=== PATIENT | female | born 1990 | race Caucasian/White ===

== ENCOUNTER 2016-08-14 10:21 | Outpatient (CLI) | payer MEDICAID | END 2016-08-14 10:22 | disposition home or self-care (01) | DX: Z36 Encounter for antenatal screening of mother (principal) ==

== ENCOUNTER 2016-10-07 10:42 | Outpatient (CLI) | payer MEDICAID | END 2016-10-07 10:43 | DX: Z11.3 Encounter for screening for infections with a predominantly sexual mode of transmission (principal) ==

== ENCOUNTER 2016-11-15 12:00 | Outpatient (CLI) | payer MEDICAID | END 2016-11-15 12:01 | disposition home or self-care (01) | DX: Z36 Encounter for antenatal screening of mother (principal) ==

== ENCOUNTER 2016-12-25 10:04 | Outpatient (CLI) | payer MEDICAID ==
[2016-12-25 11:32] LABS: HCT - HEMATOCRIT 28.6 % (37.0-47.0); HGB - HEMOGLOBIN 9.6 g/dL (12.0-16.0); MEAN CORPUSCULAR HEMOGLOBIN 31.8 pg (27.0-31.0); MEAN CORPUSCULAR HGB CONC 33.6 g/dL (32.0-36.0); MEAN CORPUSCULAR VOLUME 94.5 fL (81.0-99.0); MEAN PLATELET VOLUME 7.1 fL (7.9-10.8); RED BLOOD COUNT 3.02 10^6/uL (4.20-5.40)
== END 2016-12-25 10:05 | disposition home or self-care (01) ==
LOC: LAB 10:04
PROVIDERS: ATTEND Nurse Practitioner Obstetrics & Gynecology
DX: Z36 Encounter for antenatal screening of mother (principal)
CPT/HCPCS: 36415; 82950; 86850

== ENCOUNTER 2017-02-28 11:13 | Outpatient (CLI) | payer MEDICAID | END 2017-02-28 11:14 | disposition home or self-care (01) | LOC: LAB.R 11:13 | PROVIDERS: ATTEND Registered Nurse | DX: Z36 Encounter for antenatal screening of mother (principal) | CPT/HCPCS: 87081 ==

== ENCOUNTER 2017-03-11 10:34 | Outpatient (CLI) | payer MEDICAID ==
[2017-03-11 11:35] LABS: IRON 44 ug/dL (28-170); TOTAL IRON BINDING CAPACITY 588 ug/dL (250-450); TRANSFERRIN 420 mg/dL (192-382)
== END 2017-03-11 10:35 | disposition home or self-care (01) ==
LOC: LAB 10:34
PROVIDERS: ATTEND Registered Nurse
DX: O99.013 Anemia complicating pregnancy, third trimester (principal)
CPT/HCPCS: 36415; 82728; 83540; 84466; 85018

== ENCOUNTER 2017-03-25 20:14 | Inpatient (IN) | payer MEDICAID ==
[2017-03-25] MEDS ORDERED: SODIUM CHLORIDE FLUSH 0.9% 10 ML SYRINGE IVP ONE ×2 (20:56→21:02)
[2017-03-25] MEDS ORDERED: OXYTOCIN/SODIUM CHLORIDE 250 ML IV ONE (21:01)
[2017-03-25] MEDS ORDERED: SODIUM CHLORIDE FLUSH 0.9% 10 ML SYRINGE IVP PRN (21:01)
[2017-03-25] MEDS ORDERED: ONDANSETRON 4 MG/2 ML VIAL IVP PRN (21:01)
[2017-03-25] MEDS ORDERED: LACTATED RINGERS 1,000 ML IV ONE (21:02)
[2017-03-25] MEDS ORDERED: fentaNYL 2,500 MCG/50 ML VIAL IV PRN (21:04)
--- NOTE | 2017-03-25 21:09 | HISTORY & PHYSICAL EXAMINATION ---
Admit History - Instructions Chilkat/Slash: -Left hand click circles element as positive or present. -Right hand click slashes element as negative or not present. - Visit Reason Visit Reason: Membranes rupture - : 3 Parity: 2 Premature: 0 Ectopic: 0 : 0 Care: positive: [facility] Risk/History: positive: None Complications This : positive: None, Other (mild anemia, iron -deficiency) Smoking Status: Former smoker - Mother's Labs Mother's Blood Type: positive: A Mother's RH: positive: Positive GBS: positive: Group B Step Negative Rubella Status: positive: Immune Meds/Allgy - Home Medications Home Medications: Ambulatory Orders Medication Instructions Recorded Confirmed Ferrous Sulfate 325 mg ORAL BID 03/25/17 03/25/17 Pnv No.121/Iron/Folic Acid 1 each ORAL DAILY 03/25/17 03/25/17 [ Multivitamin Tablet] - Allergies Allergies/Adverse Reactions: Allergies Allergy/AdvReac Type Severity Reaction Status Date / Time aspirin Allergy Hives Verified 03/25/17 21:00 Physical - Abdominal Exam Vital Signs: Temp Pulse Resp BP Pulse Ox 36.8 C 80 16 122/68 100 03/25/17 20:23 03/25/17 20:23 03/25/17 20:23 03/25/17 20:23 03/25/17 20:23 Contraction Frequency (min/apart): irregular Contraction Intensity: positive: Mild Uterine Resting Tone: positive: Soft - Monitoring Heart Rate Baseline: 130 Strip Review: positive: Category I (130bpm BL, +accels, no decels, moderate variability) - Presentation Presentation: positive: Vertex - Vaginal Exam Membranes: positive: Membranes ruptured (+ nitrazine, + fern, CAF observed) Dilation (in cm): 4 Effacement (%): 90 Station: positive: -1 Cervical Position: positive: Anterior - Speculum Exam Speculum Exam Performed: positive: No Findings: positive: Fern, Nitrazine - Other Notes Labor Progress Note/Additional Text: S: Niecy is a 26 y/o @ 39w1d by 1st trimester US who presents w/ complaint of leakage of fluid beginning at 1930. She noticed leakage after using restroom & applied a pad, which became wet shortly after application. She has had ongoing leakage of fluid. She denies painful uterine contractions. She denies vaginal bleeding. She reports good FM. She is accompanied by her partner, Long, who is involved & supportive. She is hoping for epidural anesthesia for her discomfort in labor. Niecy's has been complicated by iron-deficiency anemia that has persisted @ hgb 9.9 despite iron supplementation. She has otherwise had an uncomplicated . She screened negative for GBS @ 36 weeks' gestation. Niecy is taking vitamins & iron orally, and she occasionally using Tums for heartburn. Niecy's medical & obstetric history are unremarkable, and she has never had surgery. O: AAOx3, NAD WA gravid female. Affect appropriate, mood excited. Eager to meet her baby VSS, as noted EFM cat I, reactive NST Minimal uterine activity Cephalic presentation, palpable movement, EFW 6-6.5# Leakage of clear amniotic fluid noted +fern, +nitrazine Lungs: b/l CTA t/o Heart: RRR nls1s2, no murmur Abd: gravid, NT Skin:clean, dry, intact w/o lesion, multiple piercings, multiple tattoos HEENT: Poor dentition w/ carious teeth Extremities: FROM x4, no edema Neuro: no gross deficit Psych: pleasant, cooperative A: 26 y/o @ 39w1d by early US w/ SROM for CAF x1.75 hours GBS negative Not in labor Adequate pain control w/o analgesia/anesthesia FHTs cat I P: 1. Reviewed all options for management & risks/benefits of options 2. Pt elects Pitocin IOL for SROM, PARQ held 3. Admit to inpatient FBP 4. CBC, BB hold, IV insertion 5. Reviewed anemia & desire to minimize pp EBL; will actively manage 3rd stage of labor 6. Begin Pitocin infusion & titrate per protocol to adequate labor pattern by tocometry 7. Analgesia/anesthesia PRN per pt request 8. Assess cervical status w/ change in clinical status; minimize cervical exams secondary to SROM 9. Anticipate 10. Reviewed plan of care w/ pt, partner, RN @ bedside & back-up Dr. Misty ORTIZ; all in agreement, without concerns.
[2017-03-25 21:11] LABS: BASOPHILS % (AUTO) 0.6 %; EOSINOPHILS % (AUTO) 1.1 %; HCT - HEMATOCRIT 29.6 % (37.0-47.0); HGB - HEMOGLOBIN 9.8 g/dL (12.0-16.0); LYMPHOCYTES % (AUTO) 16.4 %; MEAN CORPUSCULAR HEMOGLOBIN 30.8 pg (27.0-31.0); MEAN CORPUSCULAR HGB CONC 33.1 g/dL (32.0-36.0); MEAN CORPUSCULAR VOLUME 93.2 fL (81.0-99.0); MEAN PLATELET VOLUME 7.9 fL (7.9-10.8); MONOCYTES % (AUTO) 7.3 %; NEUTROPHILS % (AUTO) 74.6 %; RED BLOOD COUNT 3.17 10^6/uL (4.20-5.40); RED CELL DISTRIBUTION WIDTH 13.4 % (12.0-15.0)
[2017-03-25] MEDS ORDERED: CALCIUM CARBONATE CHEW 500 MG TABLET ONE (21:22)
[2017-03-25] MEDS: CALCIUM CARBONATE CHEW 500 MG TABLET PO SCH (21:23)
[2017-03-25] MEDS: LACTATED RINGERS 1,000 ML IV SCH (21:25)
[2017-03-25 21:31] LABS: BAND NEUTROPHILS % (MANUAL) 5 %; LYMPHOCYTES % (MANUAL) 19 %; NEUTROPHILS % (MANUAL) 71 %; NP AUTO DIFFERENTIAL? YES; NP MAN DIFFERENTIAL? NO; PLATELET ESTIMATE, MANUAL NORMAL (130-450,000) (NORMAL); PLATELET MORPHOLOGY NORMAL APPEARANCE (NORMAL); TOTAL CELLS COUNTED 100
[2017-03-25] MEDS ORDERED: OXYTOCIN/SODIUM CHLORIDE 250 ML IV SCH (22:00)
[2017-03-25] MEDS ORDERED: SODIUM CHLORIDE FLUSH 0.9% 10 ML SYRINGE IVP SCH (22:00)
[2017-03-25] MEDS ORDERED: TERBUTALINE 1 MG/ML VIAL SUBQ SCH (22:00)
[2017-03-26] MEDS ORDERED: fent/BUPIV 2 MCG/0.125% 250 ML EP ONE (01:12)
[2017-03-26] MEDS ORDERED: MINERAL OIL LIGHT 10 ML MC ONE (01:13)
[2017-03-26] MEDS ORDERED: fentaNYL 100 MCG/2 ML VIAL ONE ×2 (01:14→10:23)
--- NOTE | 2017-03-26 01:16 | PROVIDER PROGRESS NOTE ---
Labor Progress Note - Uterine Monitoring Uterine Monitoring Mode: positive: External toco Contraction Frequency (min/apart): 2-3 Contraction Intensity: positive: Moderate Uterine Resting Tone: positive: Soft - Monitoring Monitor Mode: positive: External ultrasound Heart Rate Baseline: 120 Heart Rate Variability: positive: Moderate (6-25 bmp) Accelerations: positive: Present, 15x15 Decelerations: positive: None Strip Review: positive: Category I - Labor Progress Note Labor Progress Note/Additional Text: S: Niecy is resting quietly in bed; she has been up to the restroom several times, and she has been changing positions. She is not interested in being out of the bed or using the ball or rocking chair. She reports increased intensity of uterine contractions & more profound anterior cramping w/ some intermittent sensation of increased pressure. She continues to leak CAF. She does not desire analgesia or anesthesia @ this time. Her partner is present @ the bedside & is involved & supportive. O: VS: T: 98.6, HR 62 RR 18 BP 113/60 EFM: BL 120, +accels, no decels, mod variability TOCO: UCs q2-3 minutes x60-90 seconds, palpably moderate on 2mU/min of Pitocin SVE: Deferred secondary to ROM A: 26 y/o @ 39w2d s/p SROM for CAF @ 1930, for a total ruptured duration of 5.75 hours, afebrile FHTs cat I Increased uterine activity w/ Pitocin infusion Adequate pain control w/o analgesia/anesthesia GBS negative P: 1. Encouraged light po intake 2. Encouraged maternal rest 3. Reviewed optimal maternal positioning to facilitate descent 4. Continue to titrate Pitocin infusion to maintain adequate contraction pattern per tocometry 5. Analgesia/anesthesia PRN per pt request 6. Assess cervical status w/ clinical indication or x4 hours if no change in clinical status 7. Reviewed plan of care w/ pt, partner, RN @ bedside & back-up Dr. Misty ORTIZ; all in agreement, without concerns 8. Anticipate
[2017-03-26] MEDS: LACTATED RINGERS 1,000 ML IV SCH ×3 (01:20→09:48)
[2017-03-26] MEDS: CALCIUM CARBONATE CHEW 500 MG TABLET PO SCH ×2 (02:18→21:29)
[2017-03-26] MEDS ORDERED: METOCLOPRAMIDE 10 MG/2 ML VIAL IVP PRN (02:21)
[2017-03-26] MEDS ORDERED: LACTATED RINGERS 500 ML IV ONE (02:21)
[2017-03-26] MEDS ORDERED: ePHEDrine 50 MG/ML VIAL IVP PRN (02:21)
[2017-03-26] MEDS ORDERED: ONDANSETRON 4 MG/2 ML VIAL IVP PRN (02:21)
[2017-03-26] MEDS ORDERED: diphenhydrAMINE INJ 50 MG/ML VIAL IVP PRN (02:21)
[2017-03-26] MEDS ORDERED: NALOXONE 0.4 MG/ML VIAL IVP PRN (02:21)
[2017-03-26] MEDS ORDERED: NALBUPHINE 20 MG/ML AMP IVP PRN (02:21)
[2017-03-26] MEDS ORDERED: fent/BUPIV 2 MCG/0.125% 250 ML EP PRN ×2 (02:21→03:03)
[2017-03-26] MEDS ORDERED: LIDOCAINE 1% 50 ML MDV ONE (02:26)
--- NOTE | 2017-03-26 04:53 | PROVIDER PROGRESS NOTE ---
Labor Progress Note - Uterine Monitoring Uterine Monitoring Mode: positive: External toco Contraction Frequency (min/apart): 2-4 Contraction Intensity: positive: Moderate Uterine Resting Tone: positive: Soft Other Uterine Monitoring: on 3mU/min of Pitocin - Monitoring Monitor Mode: positive: External ultrasound Heart Rate Baseline: 125 Heart Rate Variability: positive: Moderate (6-25 bmp) Accelerations: positive: Present, 15x15 Decelerations: positive: None Strip Review: positive: Category I - Vaginal Exam Dilation (in cm): 5 Effacement (%): 90 Station: -3, Ballotable Cervical Position: Anterior - Labor Progress Note Labor Progress Note/Additional Text: S: Niecy is comfortable w/ her epidural, but she report pruritus that is intense & interfering w/ her ability to rest. She also reports profound heartburn that has been bothering her despite taking Tums earlier in the evening. She denies discomfort or pressure. She was unable to void independently earlier. O: AAOx3, NAD WA gravid female. VS: T 98.6, HR 88, RR 16, BP 121/75 EFM: BL 125bpm, + accels, no decels, mod bandar TOCO: UCs q3-4 minutes x50-70 seconds, palpably mild SVE: 5/90/-3 ballotable & poorly engaged, hand palpated in forebag, ongoing leakage of CAF A: 26 y/o @ 39w2d s/p SROM for CAF 03/25/2017 @ 1930, for a total ruptured duration of 9.5 hours, afebrile Minimal cervical change w/ Pitocin infusing @ 2-3mU/min x7 hours GBS negative FHTs cat I Adequate pain control w/ epidural anesthesia malpresentation, compound P: 1. Reviewed clinical scenario w/ pt, unsafe @ present to AROM forebag given hand presentation, unable to place IUPC to better titrate Pitocin infusion 2. Will continue to titrate Pitocin infusion per protocol to maintain adequate contraction pattern by tocometry 3. famotidine 40mg IVPB for GERD 4. diphenhydramine IVP for pruritus per anesthesia orders 5. Reviewed optimal maternal positioning to encourage descent: placed in high Hsieh's w/ legs dangling 6. Encouraged maternal rest 7. Reassess cervical status x4 hours, earlier PRN; AROM forebag w/ descent & no evidence of hand presentation 8. Reviewed plan of care w/ pt & RN @ bedside; Dr. Misty MD, updated re: pt clinical status
[2017-03-26] MEDS ORDERED: FAMOTIDINE 20 MG/50 ML 50 ML IV ONE (05:27)
--- NOTE | 2017-03-26 08:18 | PROVIDER PROGRESS NOTE ---
Labor Progress Note - Uterine Monitoring Contraction Frequency (min/apart): q2 Contraction Intensity: positive: Moderate to strong Uterine Resting Tone: positive: Soft - Monitoring Monitor Mode: positive: External ultrasound Heart Rate Baseline: 130 Heart Rate Variability: positive: Moderate (6-25 bmp) Accelerations: positive: Present, 15x15 Decelerations: positive: None Strip Review: positive: Category I - Vaginal Exam Dilation (in cm): 6 Effacement (%): 90 Station: -1 Cervical Position: Midposition ( head well-applied to cervix; AROM forebag for moderate CAF) - Labor Progress Note Labor Progress Note/Additional Text: S: Niecy complains of increased sensation of pressure & perineal discomfort. She can now feel her urinary catheter. She has not utilized her [employer] REPRESENTATIVE since receiving her epidural. She is hopeful it is time to push. Her partner is present @ the bedside, supportive. She was able to rest some but did not really sleep. O: AAOx3, NAD WA gravid female VS: T 98.6, HR 85, RR16BP 107/54 EFM: BL 130bpm, + accels, no decels, moderate variability TOCO: UCs q2 min x60 sec, palp moderate-strong on 3mU/min of Pitocin SVE: /-1 AROM bulging forebag, head well-applied to cervix, moderate CAF, no palpable hand, position LOT A: 26 y/o @ 39w2d by 1st trimester US s/p SROM for CAF 03/25/2017 @ 1930, for a total ruptured duration of 10.75 hours, afebrile Progressive cervical change GBS negative FHTs cat I Inadequate pain control w/ epidural anesthesia P: 1. Reviewed clinical scenario & pain management; pt to utilize [employer] SERVICE REPRESENTATIVE--if inadequate, will have anesthesia eval for bolus 2. Reviewed rotation & descent, will remain in high hood's 3. Reassess cervical status x4 hours, earlier PRN 4. Continue to titrate Pitocin infusion per protocol to maintain adequate contraction pattern by tocometry 5. Anticipate 6. Reviewed plan of care w/ pt, partner, RN @ bedside & Dr. Aguilera, backup MD; all in agreement, without concerns
[2017-03-26] MEDS ORDERED: FAMOTIDINE 20 MG/50 ML 50 ML IV SCH (09:00)
[2017-03-26] MEDS ORDERED: fentaNYL 100 MCG/2 ML VIAL IVP PRN (11:43)
[2017-03-26] MEDS ORDERED: HYDROCORTISONE/PRAMOXINE 10 GM PR PRN (13:02)
[2017-03-26] MEDS ORDERED: OXYTOCIN/SODIUM CHLORIDE 250 ML IV ONE (13:02)
[2017-03-26] MEDS ORDERED: WITCH HAZEL/GLYCERIN 1 EACH MED..PAD TOP PRN (13:02)
--- NOTE | 2017-03-26 13:25 | DELIVERY NOTE ---
Delivery Note - Labor Labor: positive: Augmented by oxytocin, Induced by oxytocin - Delivery Method Delivery Method: positive: Spontaneous vaginal delivery - Presentation Presentation: positive: Vertex, DERICK - right occiput anterior - Nuchal Cord Nuchal Cord: positive: None - Anesthetic Anesthetic Type: - Amniotic Fluid Description Amniotic Fluid Description: positive: Clear - Episiotomy Type Episiotomy Type: positive: None - Laceration Laceration: positive: None - Delivery Outcome Delivery Outcome: positive: Livebirth - [place]: positive: Placed in direct skin contact with mother, Stimulated, Warmed , [place] used sex: positive: Male - Cord Cord: positive: 3 vessels - Placenta Placenta: positive: Intact, Spontaneous - Estimated Blood Loss Estimated Blood Loss (in cc): 150 - Post Delivery Events Post Delivery Events: positive: No post delivery events - Delivery Comments (Free Text/Narrative) Delivery Comments (Free Text/Narrative): Niecy is a 26 y/o [id number] who presented @ 39w1d by 1st trimester US w/ complaint of SROM 03/25/2017 @ 1930 for CAF. She was not in labor. She was GBS negative. She elected Pitocin induction of labor & received epidural anesthesia for discomfort. She underwent AROM of forebag w/ descent @ 6cm dilatation @ 0800, & thereafter progressed steadily w/ Pitocin infusion to complete dilatation w/ sensation of vaginal/rectal pressure @ 1230, for a total first stage duration of 4.5 hours. She pushed w/ spontaneous urge to of viable male in DERICK position over intact perineum @ 1244 , for a total second stage duration of 14 minutes. vigorous w/ spontaneous, lusty cry. Placed to maternal abdomen for drying/stimulation. Delayed cord clamping until cessation of pulsation, the cord clamped x2 by CNM, cut by FOB. 3VC noted , cord blood obtained. Active management of the 3rd stage w/ Pitocin in IV fluids. Placenta delivered spontaneously, Apple presentation, @ 1250 , for a total 3rd stage duration of 6min . Fundus firm @ U. Vagina & perineum inspected & found to be intact. EBL 150mL. Infant placed directly [id number] w/ mother & intiated w/ intermittent latch. Pt somewhat success w/ experiences in the past. Hopes to breastfeed for a longer duration this time. Apgars 8 @ 1min & 9 @ 5min. Weight pending. Plans to return to work x6 weeks. Denies hx of pp depression. Partner present & supportive, will have time off work to assist her.
[2017-03-26] MEDS ORDERED: LACTATED RINGERS 1,000 ML IV SCH (14:00)
[2017-03-26] MEDS: ACETAMINOPHEN 325 MG TABLET PO PRN ×2 (15:18→21:32)
[2017-03-26] MEDS: IBUPROFEN 600 MG TABLET PO SCH ×2 (15:19→21:29)
[2017-03-27] MEDS: ACETAMINOPHEN 325 MG TABLET PO PRN ×4 (02:07→20:17)
[2017-03-27] MEDS: IBUPROFEN 600 MG TABLET PO SCH ×4 (05:32→18:49)
--- NOTE | 2017-03-27 09:10 | PROVIDER PROGRESS NOTE ---
Subjective - Prog Note Date Prog Note Date: 03/27/17 - Subjective Pt reports feeling: Improved (Niecy is feeling overwhelmed & emotional this morning secondary to illness. She is ambulating and voiding w/o difficulty & reports minimal cramping w/ nursing. She is well w/ slight discomfort w/ initial latch; infant nursing q2-3 hours x30-40 minutes each side. She is disappointed that she won't be going home today, but articulates understanding regarding the baby's condition. She has good support from her , Long. She has not yet had a BM, but she is passing flatus. She is tolerating po intake w/o difficulty. She denies hx of pp depression.) Current Medications - Current Medications Current Medications: Ibuprofen, PRN Acetaminophen, PRN Tucks, PRN Objective - Vital Signs/Intake & Output Reviewed Vital Signs: Yes Vital Signs: Vital Signs x48h Temp Pulse Resp BP Pulse Ox 03/27/17 08:35 36.5 C 68 18 108/62 98 03/27/17 02:00 67 18 103/58 L 96 Intake & Output: Intake & Output 03/24/17 03/25/17 03/26/17 03/27/17 23:59 23:59 23:59 23:59 Intake Total 3449 500 Output Total 1250 Balance 2199 500 - Objective General Appearance: positive: No acute distress, Alert Eyes Bilateral: positive: Normal inspection, EOMI, No scleral icterus Respiratory: positive: No respiratory distress, Breath sounds nml Cardiovascular: positive: Regular rate & rhythm, No murmur Abdomen: positive: Non-tender, No distention, Other (Fundus firm @ U-1). negative: Mass Skin: positive: Color nml, No rash, Warm, Dry Extremities: positive: Non-tender, Full ROM, Nml appearance, No pedal edema. negative: Calf tenderness, Diane's sign/cords Neurologic/Psychiatric: positive: Oriented x3, CN's nml (2-12), Sensation nml, Mood/affect nml - Lab Results Fish Bones: 03/27/17 04:32 Other Labs: Lab Results x24hrs 03/27/17 Range/Units 04:32 Hgb 9.6 L (12.0-16.0) g/dL - Other Results/Comments Other Results/Comments: Breasts b/l soft, NT, nipples intact & everted, colostrum easily expressible; observed latch 10/10 w/ consistent suckling. Assessment/Plan - Problem List (1) Iron (Fe) deficiency anemia Impression: mild iron-deficiency anemia, asymptomatic & hemodynamically stable Plan: po iron supplementation reviewed dietary iron intake Qualifiers: Iron deficiency anemia type: unspecified iron deficiency Qualified Code(s) : D50.9 - Iron deficiency anemia, unspecified (2) (normal spontaneous vaginal delivery) Impression: Recovering well, PPD #1 well Adequate pain control w/ non-opioid analgesia Normal uterine involution Minimal lochia rubra Plan: support provided & not continue in ongoing fashion Routine care Reviewed warning s/sx, including pp depression s/sx Anticipate DC PPD#2
[2017-03-27] MEDS: CALCIUM CARBONATE CHEW 500 MG TABLET PO SCH ×2 (09:16→21:51)
[2017-03-28] MEDS: IBUPROFEN 600 MG TABLET PO SCH ×3 (02:05→13:53)
[2017-03-28] MEDS: ACETAMINOPHEN 325 MG TABLET PO PRN ×3 (02:05→12:24)
[2017-03-28 08:21] VITALS: BP 110/73
[2017-03-28] MEDS: CALCIUM CARBONATE CHEW 500 MG TABLET PO SCH (09:02)
--- NOTE | 2017-03-28 13:57 | DISCHARGE SUMMARY ---
"Discharge Summary Admit Date: 03/25/17 Discharge Date: 03/28/17 Discharging Provider: nikos Code Status: Attempt Resuscitation Condition at Discharge: Good Discharge Disposition: 01 Home, Self Care Discharge Facility Name: [facility] - DIAGNOSES Admission Diagnoses: Leakage of amniotic fluid Discharge Diagnoses with Status of Each Condition: - [facility] History of Present Illness: Niecy is a 26 y/o G3now P3 who was admitted for SROM not in labor. She elected Pitocin induction of labor & progressed steadily to 6cm, at which time a forebag was AROM'ed & she progressed thereafter to complete dilatation w/o complication. She delivered vaginally a viable male over an intact perineum w/ o complication & was well w/in 30 min of delivery. - CONSULTS | PROCEDURES Procedures: Pitocin IOL Epidural Placement - HOSPITAL COURSE Hospital Course: , her pain is well-controlled w/o opioid analgesia. She is ambulating & voiding w/o difficulty. She is passing flatus & tolerating a po diet w/o difficulty. She is w/ some difficulty secondary to nipple pain, and she is working on improving her latch. She plans pp f/u as an outpt for support. She denies hx of mood disorder s/p delivery of her other 2 children. Her is present & will not be returning to work until July. She is undecided as to whether she will be returning to work. She intends outpt BTL, and she has signed the [facility] consent (3 weeks ago). She is able to fully articulate pp warning s/sx, and pp aftercare instructions, pp depression s/sx. She plans to remain at the hospital w/ her infant, who requires ongoing medical care for febrile status. Her physical exam is WNL: AAOx3, NAD [place] female Affect appropriate, mood normal HEENT: normocephalic, atraumatic, poor dentition w/ carious teeth Lungs: b/l CTA t/o Heart: RRR nls1s2, no murmur Breasts b/l filling, NT, nipples w/ slight cracking, no bleeding, everted Abd: s, nt, nd FF U-2 Perineum: intact, no edema, no ecchymosis, minimal lochia rubra Extremities: FROM t/o , no jackie's, no edema Neuro: no focal deficit A: 26 y/o s/p w/o laceration, PPD#2 Normal uterine involution effectively but with some challenges Adequate pain control P: reviewed warning s/sx, including pp depression s/sx Plan outpt f/u PP appt x2 wks w/ me, earlier PRN Will plan for pp BTL as outpt Pt has emergency contact information d/c to home - ALLERGIES Allergies/Adverse Reactions: Allergies Allergy/AdvReac Type Severity Reaction Status Date / Time aspirin Allergy Hives Verified 03/25/17 21:00 - MEDICATIONS Home Medications: Ambulatory Orders Medication Instructions Recorded Confirmed Ferrous Sulfate 325 mg ORAL BID 03/25/17 03/25/17 Pnv No.121/Iron/Folic Acid 1 each ORAL DAILY 03/25/17 03/25/17 [ Multivitamin Tablet] Acetaminophen [Tylenol] 650 mg PO Q4HR PRN #0 tablet 03/28/17 Calcium Carbonate [Tums (Calcium 500 mg PO BID tablet 03/28/17 Carbonate 500mg)] Ibuprofen [Motrin] 600 mg PO Q6H tablet 03/28/17 - LABS Result Diagrams: 03/27/17 04:32"
--- NOTE | 2017-03-28 13:59 | Discharge Plan ---
Discharge Plan Disposition: 01 Home, Self Care Condition: Good Diet: Regular Activity Restrictions: pelvic rest x6 weeks Shower Restrictions: No Driving Restrictions: No Weight Bearing: Full Weight Instruction Topics: Vaginal After No Smoking: If you smoke, Please STOP! Call for help. Follow-up with: Andrea Mendez, JOSE, [place] [Provider Admit Priv/Credential] -
--- NOTE | 2017-03-28 21:35 | Labor Flowsheet ---
Labor Flowsheet Datetime Report Generated by CPN: 03/28/2017 21:35 Datetime: 03/28/2017 08:19 Pulse: 63 SpO2 (%): 100 Temperature (F): 93.4 Temperature (C): 34.1 Temperature (C): 34.1 LaborFlag: Labor Datetime: 03/28/2017 08:18 VITAL SIGNS NBP Sys/Ruth/Mean (mmHg): 110 : 73 : 82 Datetime: 03/26/2017 12:35 Hygiene: Underpad Changed I/O Interventions: Quintero Discontinued Strip Reviewed by: shon giordano at bedside Datetime: 03/26/2017 12:30 UTERINE ACTIVITY Monitor Mode: External Frequency (min): 2-3 Quality: Strong Duration (sec): 50-70 Pattern: Normal: <= 5 Contractions in 10 Minutes Resting Tone (Palpate): Relaxed ASSESSMENT A Monitor Mode: External US FHR Baseline Rate : 125 Variability: Moderate 6-25 bpm Accelerations: 15X15 Decelerations: Variable Category: Category II VAGINAL EXAM Dilatation (cm): 10.0 Effacement (%): 100 Exam by: pat nielsen rn Membrane Status: Ruptured Datetime: 03/26/2017 12:15 FHR Baseline Changes: No Baseline Change Datetime: 03/26/2017 12:00 Monitor Interventions for UA: [place] Adjusted Datetime: 03/26/2017 11:45 Oxygen Method: Room Air Datetime: 03/26/2017 11:25 Patient Care Comments: pt feeling pain on right side but states better after epidural bolus. talkin g on phone now Datetime: 03/26/2017 10:38 Respirations: 17 Datetime: 03/26/2017 10:34 PATIENT CARE IV/Blood Work: IV Bolus Started Datetime: 03/26/2017 10:30 ANESTHESIA Anesthesia Plans: Epidural Anesthesia Comments: bolus given Datetime: 03/26/2017 10:14 Patient Position/Activity: Left Lateral Datetime: 03/26/2017 10:10 Station: -1 Vaginal Bleeding: None Cervix, Consistency: Soft Cervix, Position: Posterior Datetime: 03/26/2017 09:43 Contraction Comments: ctx feeling stronger with more pressure Datetime: 03/26/2017 08:35 MEDICATIONS Pitocin (milliunits): Increased to @ 4 Datetime: 03/26/2017 08:24 Comments: cordless battery low, monitor switched Datetime: 03/26/2017 08:05 Vaginal Exam Comments: 5cm, forebag arom, now 6cm Datetime: 03/26/2017 06:58 TEACHING Instructional Method: Verbal Unit Routine: Unit Personnel Datetime: 03/26/2017 06:35 Monitor Interventions for FHR: Ultrasound Adjusted Datetime: 03/26/2017 06:00 Pain Assessment Comments: pt resting Plan of Care: Labor Datetime: 03/26/2017 05:00 PAIN Pain Scale: 0 Labor/Induction: Labor Stages; Augmentation Datetime: 03/26/2017 04:40 Communication Comments: Morghan Milagrosa failed at an attempt to AROM forebag and insert IUPC d/t baby's hand in the way Datetime: 03/26/2017 04:25 Medication Comments: increased pit to 3 Datetime: 03/26/2017 04:00 Anesthesia Level Check: T8- Ribs Datetime: 03/26/2017 02:33 Provider Notified (Name): Yael Aube Datetime: 03/26/2017 02:30 Vital Sign Comments: non-dependent arm Datetime: 03/26/2017 02:00 Pain Relief Measures: Epidural Given Datetime: 03/26/2017 01:57 Pain Management: Epidural; Pain Scale/Goals Datetime: 03/26/2017 01:46 Epidural Procedure: Loading Dose Datetime: 03/26/2017 01:25 PROCEDURE TIME OUT Procedure Verify: Correct Patient Identity; Correct Side and Site are Marked; Accurate Procedure Co nsent Form; Agreement on Procedure to be Done; Correct Patient Position; Relevant Images and Results are Properly Labeled and Displayed; Addressed Need to Administer Antibiotics or Fluids for Irrigation ; Safety Precautions Based on Patient History or Medication Use Epidural Positioning: Sitting Datetime: 03/26/2017 01:22 COMMUNICATION Communication: Provider at Bedside Datetime: 03/26/2017 01:01 Medications: Pitocin Datetime: 03/26/2017 00:50 Pain Presence: Intermittent Pain Type: Contraction; Pressure Pain Location: Abdomen; Back Pain Coping: Talking Through Contractions; Breathing Through Contractions Datetime: 03/25/2017 21:30 MATERNAL ASSESSMENT Level of Consciousness: Fully Conscious DTR's/Clonus: DTRs 2+; DTRs 3+; No Clonus Headache: Denies Breath Sounds, Left: Clear and Equal Breath Sounds, Right: Clear and Equal Nausea/Vomiting: Denies
== END 2017-03-28 14:30 | disposition home or self-care (01) | DRG 775 ==
LOC: WFO 20:14 → FBP 20:15 → WFO 20:44 → FBP 20:45
PROVIDERS: ADMIT Registered Nurse; ATTEND Registered Nurse
PROC: 3E033VJ Introduction of Other Hormone into Peripheral Vein, Percutaneous Approach (ICD-10-PCS; 2017-03-25)
PROC: 10E0XZZ Delivery of Products of Conception, External Approach (ICD-10-PCS; principal; 2017-03-26)
PROC: 10907ZC Drainage of Amniotic Fluid, Therapeutic from Products of Conception, Via Natural or Artificial Opening (ICD-10-PCS; 2017-03-26)
DX: O99.02 Anemia complicating childbirth (principal); D50.9 Iron deficiency anemia, unspecified; O99.62 Diseases of the digestive system complicating childbirth; K21.9 Gastro-esophageal reflux disease without esophagitis; O32.6XX0 Maternal care for compound presentation, not applicable or unspecified; O26.893 Other specified pregnancy related conditions, third trimester; Z37.0 Single live birth; Z3A.39 39 weeks gestation of pregnancy; Z87.891 Personal history of nicotine dependence
CPT/HCPCS: 36415; 85018; 85025; 99213

== ENCOUNTER 2017-07-21 08:42 | Outpatient (CLI) | payer MEDICAID ==
--- NOTE | 2017-07-21 15:44 | Ultrasound Report ---
REVISED: THIS REPORT WAS ORIGINALLY SIGNED ON 07/22/2017 @ 0811. ORDERING PROVIDER FIELD REVISED ON 07/23/2017. DATE OF SERVICE: 07/21/2017 PELVIC ULTRASOUND: 07/21/2017 CLINICAL INDICATION: Irregular cycles, frequent menstruation. TECHNIQUE: Transabdominal pelvic ultrasound performed for global evaluation. Transvaginal pelvic ultrasound performed for detailed evaluation. Real-time scanning performed and static images obtained. FINDINGS: The uterus is anteverted, measuring 6.9 x 5.2 x 3.2 cm. The endometrial echo complex measures 4 mm. No focal myometrial lesion is seen. The right ovary measures 2.4 x 1.6 x 1.5 cm, and the left ovary measures 2.6 x 2.1 x 1.4 cm. Both ovaries are unremarkable. No free fluid is present. IMPRESSION: NORMAL PELVIC ULTRASOUND. TD: 07/21/2017 16:43 MTDD
== END 2017-07-21 08:43 | disposition home or self-care (01) ==
LOC: DI 08:42
PROVIDERS: ATTEND Registered Nurse
DX: N92.1 Excessive and frequent menstruation with irregular cycle (principal)
CPT/HCPCS: 76830; 76856

== ENCOUNTER 2017-08-21 10:31 | Outpatient (CLI) | payer MEDICAID | END 2017-08-21 10:32 | disposition home or self-care (01) | LOC: LAB.R 10:31 | PROVIDERS: ATTEND Registered Nurse | DX: R30.0 Dysuria (principal) | CPT/HCPCS: 87086 ==